=== PATIENT | female | born 1980 ===

== ENCOUNTER 2018-07-19 12:33 | Emergency (ER) | payer SELFPAY ==
[2018-07-19 13:03] VITALS: BP 147/92; PULSE 72; RESP 16; TEMP 98.3; O2SAT 99
--- NOTE | 2018-07-19 14:04 | C.PDOC ---
History Of Present Illness 37 y/o female presents to the ED for evaluation of possible vaginal foreign body. Patient is currently on her period. States she placed a baby wipe up her vagina to stop the bleeding, which got stuck and may have traveled inward. She denies any associated complaints other than menstrual cramping. Denies any vaginal discharge, fever, or chills. Time Seen by Provider: 07/19/18 13:10 Chief Complaint (Nursing): Female Genitourinary History Per: Patient History/Exam Limitations: no limitations Onset/Duration Of Symptoms: Hrs Current Symptoms Are (Timing): Still Present Past Medical History Reviewed: Historical Data, Nursing Documentation, Vital Signs Vital Signs: Last Vital Signs Temp 98.3 F 07/19/18 13:00 Pulse 72 07/19/18 13:00 Resp 16 07/19/18 13:00 BP 147/92 H 07/19/18 13:00 Pulse Ox 99 07/19/18 13:00 - Medical History PMH: No Chronic Diseases Family History: States: No Known Family Hx - Social History Hx Tobacco Use: No Hx Alcohol Use: No Hx Substance Use: No - Immunization History Hx Tetanus Toxoid Vaccination: No Hx Influenza Vaccination: No Hx Pneumococcal Vaccination: No Review Of Systems Constitutional: Negative for: Fever, Chills Gastrointestinal: Negative for: Nausea, Vomiting, Abdominal Pain Genitourinary: Positive for: Vaginal Bleeding, Other (Vaginal foreign body). Negative for: Dysuria, Vaginal Discharge Physical Exam - Physical Exam Appears: Well, Non-toxic, No Acute Distress Skin: Warm, Dry Head: Atraumatic, Normacephalic Eye(s): bilateral: Normal Inspection, PERRL, EOMI Oral Mucosa: Moist Neck: Normal ROM Chest: Symmetrical Cardiovascular: Rhythm Regular Respiratory: Normal Breath Sounds, No Accessory Muscle Use, Other (speaking in full sentences) Gastrointestinal/Abdominal: Soft, No Tenderness, No Guarding, No Rebound Pelvic: Vaginal Bleeding (moderate blood noted), No Cervical Motion Tenderness, Other (No vaginal foreign body noted on bimanual or speculum exam) Extremity: Bilateral: Atraumatic, Normal Color And Temperature Neurological/Psych: Oriented x3, Normal Speech ED Course And Treatment O2 Sat by Pulse Oximetry: 99 (RA) Pulse Ox Interpretation: Normal Medical Decision Making Medical Decision Making: Impression: Normal exam Plan: Patient reassured there is no foreign body on pelvic exam. Given instructions for follow-up, return precautions discussed. Disposition - Disposition Disposition: HOME/ ROUTINE Disposition Time: 13:44 Condition: GOOD Additional Instructions: YADIEL TOBIAS, thank you for letting us take care of you today. Your provider was Jessie Purvis MD and you were treated for VAGINAL PAIN. The emergency medical care you received today was directed at your acute symptoms. If you were prescribed any medication, please fill it and take as directed. It may take several days for your symptoms to resolve. Return to the Emergency Department if your symptoms worsen, do not improve, or if you have any other problems. Please contact your doctor or call one of the physicians/clinics you have been referred to that are listed on the Patient Visit Information form that is included in your discharge packet. Bring any paperwork you were given at discharge with you along with any medications you are taking to your follow up visit. Our treatment cannot replace ongoing medical care by a primary care provider outside of the emergency department. Thank you for allowing the [facility] team to be part of your care today. If you had an X-Ray or CT scan: A Radiologist will review the ED reading if any change in treatment is needed we will contact you. If you had a blood, urine, or wound culture: It will take several days for the results, if any change in treatment is needed we will contact you. If you had an STI test: It will take 48 hours for the results. Please call after 1 week if you have not heard back. Instructions: Menstrual Cramps (DC) Forms: RemitDATA (Uzbek) Print Language: MAORI - Clinical Impression Clinical Impression: Vaginal foreign body - Scribe Statement The provider has reviewed the documentation as recorded by the Michaelle Mendoza Provider Attestation: All medical record entries made by the Michaelle were at my direction and personally dictated by me. I have reviewed the chart and agree that the record accurately reflects my personal performance of the history, physical exam, medical decision making, and the department course for this patient. I have also personally directed, reviewed, and agree with the discharge instructions and disposition.
== END 2018-07-19 13:58 | disposition home or self-care (01) ==
LOC: C.ER 12:33
DX: T19.2XXA Foreign body in vulva and vagina, initial encounter (principal); X58.XXXA Exposure to other specified factors, initial encounter